=== PATIENT | female | born 1975 | race Caucasian/White ===

== ENCOUNTER 2017-12-18 07:40 | Emergency (ER) | payer OTHER ==
[~2017-12-18] VITALS: Ht 160 cm; Wt 119.8 kg
[2017-12-18 07:44] VITALS: TEMP 37.1; Ht 160 cm; Wt 119.8 kg
[2017-12-18] MEDS ORDERED: KETOROLAC TROMETHAMINE 30 MG/ML VIAL IV STA (08:07)
[2017-12-18] MEDS ORDERED: CLIN300C2 PO (08:10)
[2017-12-18] MEDS ORDERED: CLINDAMYCIN IV 900 MG in DEXTROSE 5% 100ML 100 ML IV ONE (08:15)
[2017-12-18] MEDS ORDERED: ACET-1256 PO (08:25)
[2017-12-18 08:48] LABS: BASO % 0.7 %; BASO ABS # 0.07 K/uL (0-0.2); EOS % 0.3 %; EOS ABS # 0.03 K/uL (0-0.5); HEMOGLOBIN 13.5 g/dL (12.0-16.0); IG# 0.03 K/uL (0.00-0.02); LYMPH % 14.1 %; LYMPH ABS # 1.35 K/uL (1.2-3.4); MEAN CELL VOLUME 84.4 fL (80-100); MEAN CORPUSCULAR HEMOGLOBIN 27.8 pg (25-34); MEAN CORPUSCULAR HGB CONC 32.9 g/dl (32-36); MEAN PLATELET VOLUME 9.4 fL (7.4-10.4); MONO % 6.2 %; MONO ABS # 0.59 K/uL (0.11-0.59); NEUT % 78.4 %; NEUT ABS # 7.52 K/uL (1.4-6.5); PLATELET COUNT 334 K/uL (130-400); RED CELL DISTRIBUTION WIDTH CV 13.9 % (11.5-14.5); RED CELL DISTRIBUTION WIDTH SD 42.5 fL (36.4-46.3); WHITE BLOOD COUNT 9.59 K/uL (4.8-10.8)
[2017-12-18 08:51] LABS: CALCIUM 8.6 mg/dl (8.5-10.1); CREATININE 0.73 mg/dl (0.60-1.20); POTASSIUM 3.9 mmol/L (3.5-5.1)
[2017-12-18 08:57] VITALS: BP 113/63; PULSE 67; O2SAT 97
--- NOTE | 2017-12-18 11:45 | EMERGENCY ROOM VISIT NOTE ---
History First contact with patient: 07:48 Chief Complaint: FACIAL PAIN/INJURY Stated Complaint: MAJOR FACIAL SWELLING History of Present Illness The patient is a 42 year old female who presents to the Emergency Room with complaints of right facial swelling and right upper dental pain. The patient reports that she has had a toothache for the past several days. She did notice some mild swelling last evening, and had significant swelling upon awakening this morning. She denies any sinus congestion, sore throat, throat/tongue swelling or difficulty breathing. She also denies any fevers or chills. She did take some Tylenol last night, and use Orajel with moderate relief of her discomfort. She currently rates her pain a 6 out of 10. Review of Systems HEENT: Denies dizziness, visual problems, hearing loss, tinnitus. Denies difficulty swallowing or oral lesions. PULMONARY: Denies cough, shortness of breath, sputum production or hemoptysis. CARDIOVASCULAR: Denies chest pain, palpitations, dyspnea on exertion, orthopnea or peripheral edema. GASTROINTESTINAL: Denies diarrhea, constipation, nausea, vomiting, or abdominal pain. GENITOURINARY: Denies dysuria, frequency, urgency or nocturia. NEUROLOGIC: Denies history of epilepsy, CVA, TIA or chronic headaches. MUSCULOSKELETAL: Denies history of joint tenderness/swelling. SKIN: Denies rashes or lesions. PSYCHIATRIC: Denies history of depression or mental illness. ENDOCRINE: Denies history of diabetes or thyroid disorders. Past Medical/Surgical History Medical Problems: (1) Endometriosis (2) Gout Nos (3) Tubal Ligation Status Family History FH: breast cancer Social History Smoking Status: Never Smoker Alcohol Use: occasionally Marital Status: Housing Status: lives with family Occupation Status: employed Current/Historical Medications Scheduled Clindamycin Hcl (Cleocin), 300 MG PO QID Scheduled PRN Acetaminophen (Tylenol), 1,000 MG PO for Pain Physical Exam Vital Signs Date Time Temp Pulse Resp B/P (MAP) Pulse Ox O2 Delivery O2 Flow Rate FiO2 12/18/17 08:57 67 18 113/63 97 12/18/17 07:44 37.1 93 18 126/90 97 Room Air Physical Exam CONSTITUTIONAL: Obese female, alert and oriented X 3 with positive affect. Patient does not appear in any acute distress. HEENT: Patient has notable right facial edema without overriding erythema, induration or focal fluctuance. Pupils equal, round and reactive. No conjunctival injection. OROPHARYNX: The patient has discomfort to palpation and percussion of the right upper frontal teeth #5 through 7. No obvious gingival erythema, fluctuance or pointing. No evidence for Lowell's angina or retropharyngeal abscess. NECK: Full active range of motion without discomfort. LYMPHATICS: No submandibular, submental or cervical chain adenopathy. RESPIRATORY: Clear to auscultation bilaterally with no wheezing, crackles, rhonchi or stridor. CARDIOVASCULAR: Regular rate and rhythm with no murmurs, rubs or gallops. GASTROINTESTINAL: Bowel sounds present in all quadrants. No obvious hepatosplenomegaly. MUSCULOSKELETAL: Full range of motion of all joints without discomfort. INTEGUMENTARY: No rash or other significant dermatologic conditions noted. NEUROLOGIC: Cranial nerves II-XII grossly intact. No focal neurologic deficits noted. Facial sensations are intact. Medical Decision & Procedures Laboratory Results 12/18/17 08:15 Red Blood Count 4.86, Mean Corpuscular Volume 84.4, Mean Corpuscular Hemoglobin 27.8, Mean Corpuscular Hemoglobin Concent 32.9, Mean Platelet Volume 9.4, Neutrophils (%) (Auto) 78.4, Lymphocytes (%) (Auto) 14.1, Monocytes (%) (Auto) 6.2, Eosinophils (%) (Auto) 0.3, Basophils (%) (Auto) 0.7, Neutrophils # (Auto) 7.52, Lymphocytes # (Auto) 1.35, Monocytes # (Auto) 0.59, Eosinophils # (Auto) 0.03, Basophils # (Auto) 0.07 12/18/17 08:15 Test 12/18/17 08:15 White Blood Count 9.59 K/uL (4.8-10.8) Red Blood Count 4.86 M/uL (4.2-5.4) Hemoglobin 13.5 g/dL (12.0-16.0) Hematocrit 41.0 % (37-47) Mean Corpuscular Volume 84.4 fL (80-100) Mean Corpuscular Hemoglobin 27.8 pg (25-34) Mean Corpuscular Hemoglobin Concent 32.9 g/dl (32-36) Platelet Count 334 K/uL (130-400) Mean Platelet Volume 9.4 fL (7.4-10.4) Neutrophils (%) (Auto) 78.4 % Lymphocytes (%) (Auto) 14.1 % Monocytes (%) (Auto) 6.2 % Eosinophils (%) (Auto) 0.3 % Basophils (%) (Auto) 0.7 % Neutrophils # (Auto) 7.52 K/uL (1.4-6.5) Lymphocytes # (Auto) 1.35 K/uL (1.2-3.4) Monocytes # (Auto) 0.59 K/uL (0.11-0.59) Eosinophils # (Auto) 0.03 K/uL (0-0.5) Basophils # (Auto) 0.07 K/uL (0-0.2) RDW Standard Deviation 42.5 fL (36.4-46.3) RDW Coefficient of Variation 13.9 % (11.5-14.5) Immature Granulocyte % (Auto) 0.3 % Immature Granulocyte # (Auto) 0.03 K/uL (0.00-0.02) Anion Gap 7.0 mmol/L (3-11) Est Creatinine Clear Calc Drug Dose 127.0 ml/min Estimated GFR () 118.6 Estimated GFR (Non- 102.3 BUN/Creatinine Ratio 9.3 (10-20) Calcium Level 8.6 mg/dl (8.5-10.1) The above labs were reviewed. Medications Administered Medications (Trade) Dose Ordered Sig/Kuldip Route Start Time Stop Time Status Last Admin Dose Admin Clindamycin Phosphate 900 mg/ Dextrose 106 ml @ 100 mls/hr ONE ONCE IV 12/18/17 08:15 12/18/17 09:12 DC 12/18/17 08:21 100 MLS/HR Ketorolac Tromethamine (Toradol Inj) 30 mg NOW STAT IV 12/18/17 08:07 12/18/17 08:08 DC 12/18/17 08:21 30 MG Procedure IV medications: Clindamycin 900 mg IV infusion ED Course Patient history and physical exam were performed. Nurse's notes were reviewed. Vital signs were reviewed and were normal. IV access was established, and labs were drawn. Labs were reviewed and were grossly normal. The patient was administered clindamycin 900 mg IV infusion. The patient will be discharged with a prescription for clindamycin. She was encouraged alternate ibuprofen and Tylenol as needed for pain relief. She was instructed to follow-up with her dentist for further definitive treatment. She was instructed to return to the emergency department for some progressively worsening swelling, developing fever or other concerning symptoms. The patient was happy with plan of care, and voiced understanding of all discharge instructions. Medical Decision Medication Reconcilliation Current Medication List: was personally reviewed by me Blood Pressure Screening Patient's blood pressure: Normal blood pressure Impression Primary Impression: Periapical abscess with facial involvement Departure Information Prescriptions Clindamycin Hcl (CLEOCIN) 300 Mg Cap 300 MG PO QID for 10 Days, #40 CAP Prov: Jasen Gerber PA 12/18/17 Referrals No Doctor, Assigned (PCP) Patient Instructions My [facility]
== END 2017-12-18 08:59 | disposition home or self-care (01) ==
LOC: C.EDB 07:41 → C.EDA 08:59
DX: K04.7 Periapical abscess without sinus (principal)

== ENCOUNTER 2024-02-08 07:14 | Inpatient (IN) ==
--- NOTE | 2024-02-08 07:32 | Emergency Department Note ---
Impression & Plan Ventricular tachycardia ADMIT ED Provider Note HPI: History obtained from patient. The patient is a 48-year-old female who presents the emergency department with a chief complaint of intermittent episodes of dizziness. Patient states over the past 1 to 2 weeks she has had episodes near daily that occur with positional changes where she feels severe dizziness. She states usually these episodes only last several minutes at a time. These episodes seem to resolve when she sits still. Patient states that when she changes positions or when she turns her head sharply this seems to worsen her dizziness. On arrival here to the ED the patient is hemodynamically stable, she does not have any focal deficits on arrival. Patient denies any chest pain or shortness of breath, denies any recent fever/chills. Denies any headache. ROS: - Per HPI Differential Diagnosis: Peripheral vertigo, posterior circulation stroke, brain mass/tumor, intracranial hemorrhage, acute kidney injury/dehydration, amongst other potential pathologies. *Outpatient medications and allergy history reviewed. PE: General: Alert HEENT: Normocephalic, trachea midline Eyes: Extraocular eye movement is intact, no scleral erythema Pulmonary: Clear to auscultation bilaterally, no wheezing Cardio: Regular rate and rhythm GI: Abdomen is soft to palpation : No suprapubic tenderness MSK: No evidence of trauma or malformation of the extremities, no edema Skin: No evidence of rash Neuro: Alert, no focal deficits, no ataxia on [id number] testing bilaterally Psychiatric: Cooperative INDEPENDENT INTERPRETATIONS: bus driver/monitor: (As interpreted by myself): - An order was placed for continuous cardiac monitoring - Patient was noted to be in sinus rhythm with a rate of 90 EKG: (As interpreted by myself): Rate: 96 Rhythm: Normal sinus rhythm Intervals: Within normal limits ST changes: No ST elevation Time: 0735 EKG #2 (As interpreted by myself): Rate: 130 Rhythm: Sinus rhythm with 13 beat run of ventricular tachycardia Intervals: When in sinus rhythm within normal limits ST changes: No ST elevation Time: 0753 Interventions provided in ED: -Meclizine, IV amiodarone bolus and drip, IV metoprolol, IV fluid bolus Medical Decision Making: IV was established and lab work obtained, patient was placed on nurse monitoring. Initial EKG shows sinus rhythm without any acute ischemic changes or arrhythmia. While on the nurse monitoring here in the ED the patient was noted to have multiple runs of ventricular tachycardia that were nonsustained, at times patient did have runs as long as about 15 seconds. She stated at times she did have some dizziness but denied any chest pain or shortness of breath. Patient was initiated on IV amiodarone bolus and drip. Lab work shows no leukocytosis, hemoglobin is normal, platelet count is normal, CMP does not show any evidence of any critical findings, magnesium and TSH are both within normal limits, potassium is normal. Troponin is negative. Patient symptoms initially seemed consistent with peripheral vertigo however given arrhythmia on the monitor I suspect this is likely the source of her dizziness and intermittent nausea. I discussed the patient's presentation with on-call cardiology, Dr. Jansen, they are in agreement for consultation and he recommends at this time maintaining the patient on amiodarone drip as her episodes are nonsustained with ventricular tachycardia. Case was then discussed with the on-call admitting hospitalist, Dr. Delgado, the patient was placed for admission in stable condition. Consultants/Discussions held with other healthcare providers: -Cardiology, Dr. Jansen -Hospitalist, Dr. Delgado Disposition discussion held by myself with: -Patient and at bedside * CRITICAL CARE TIME: ( 43 ) minutes -Stabilization of tachyarrhythmia/ventricular tachycardia requiring IV medications for rhythm control, time spent at the bedside, interpretation of multiple EKGs and diagnostic studies, discussion with other specialists/healthcare providers and arrangement of admission Diagnosis: 1. Ventricular tachycardia, acute, nonsustained 2. Episodic lightheadedness/dizziness, acute Disposition: Admission Thierno Denise DO Emergency Medicine Past Med/Surg History Problem List (Updated 02/08/24 @ 12:34 by Thierno Denise DO) Ventricular tachycardia (Acute) Non-sustained ventricular tachycardia Vitamin D deficiency Diarrhea Crohn's disease History of dental surgery Endometriosis Periapical abscess with facial involvement (Acute) abx treated > resolved Medical History (Updated 02/08/24 @ 12:34 by Thierno Denise DO) Gout Morbid obesity with BMI of 45.0-49.9, adult GERD (gastroesophageal reflux disease) hx of Obesity History of COVID-19 x2--03/2023 and Dec 2021 > not hospitalized Surgical History Tubal ligation status History of colonoscopy History of dilatation and curettage History of ankle surgery right Family History Other No family history of adverse response to anesthesia Social History Smoking Status: Never smoker Second Hand Exposure: No; Do You Dip or Chew Tobacco: No; Hx Alcohol Use: No Hx Substance Use: No Preferred Language: Georgian Communication Ability: Effective Lead Application Architect Required: No Beliefs That Will Affect Care: None marital status: Current Living Situation: Spouse and Family current occupational status: other current occupation: Homemaker Feels Safe at Home: Yes Assistive Devices: Denture - Upper and Glasses Allergies Allergies Allergy/AdvReac Type Severity Reaction Status Date / Time No Known Allergies Allergy Verified 02/08/24 09:33 Home Meds Home Medications Medication Instructions Recorded Confirmed cholecalciferol (vitamin D3) 10 800 unit PO QAM vitamin D 05/29/23 02/08/24 mcg (400 unit) capsule insufficiency Previous Rx's Medication Instructions Recorded mesalamine 1.2 gram tablet,delayed 2.4 g (2 x 1.2 gram) PO DAILY 01/10/24 release days #180 tabs Results & Data (ED) Vital Signs Vital Signs - 24 hr 02/08/24 07:20 02/08/24 07:54 02/08/24 08:02 Temperature 36.8 C Temperature Source Oral Pulse Rate 104 H 108 H Pulse Rate from SpO2 Sensor Respiratory Rate 20 Respiratory Effort / Characteristics Non-Labored Spontaneous Respiratory Depth Normal Respiratory Pattern Regular Blood Pressure 146/93 H 130/91 Blood Pressure Mean 110 101 Pulse Oximetry 99 Oxygen Delivery Method Room Air Sepsis Recent Fever Within 48 Hours No Sepsis New/Unexplained Change in Mental Status N/A Sepsis Action Taken by Nursing No Action Required 02/08/24 08:03 02/08/24 08:45 02/08/24 08:46 Temperature Temperature Source Pulse Rate 101 H 93 H Pulse Rate from SpO2 Sensor Respiratory Rate 22 Respiratory Effort / Characteristics Respiratory Depth Respiratory Pattern Blood Pressure 146/80 H 146/80 H Blood Pressure Mean 85 Pulse Oximetry 97 Oxygen Delivery Method Room Air Sepsis Recent Fever Within 48 Hours Sepsis New/Unexplained Change in Mental Status Sepsis Action Taken by Nursing 02/08/24 08:54 02/08/24 09:21 02/08/24 09:27 Temperature Temperature Source Pulse Rate 101 H 85 101 H Pulse Rate from SpO2 Sensor 67 65 72 Respiratory Rate 18 21 11 L Respiratory Effort / Characteristics Respiratory Depth Respiratory Pattern Blood Pressure Blood Pressure Mean Pulse Oximetry 97 97 97 Oxygen Delivery Method Room Air Room Air Room Air Sepsis Recent Fever Within 48 Hours Sepsis New/Unexplained Change in Mental Status Sepsis Action Taken by Nursing 02/08/24 09:32 02/08/24 09:34 02/08/24 09:57 Temperature Temperature Source Pulse Rate 91 H 73 Pulse Rate from SpO2 Sensor 73 Respiratory Rate 20 Respiratory Effort / Characteristics Respiratory Depth Respiratory Pattern Blood Pressure 168/91 H 168/91 H 115/88 Blood Pressure Mean 99 97 Pulse Oximetry 98 Oxygen Delivery Method Room Air Sepsis Recent Fever Within 48 Hours Sepsis New/Unexplained Change in Mental Status Sepsis Action Taken by Nursing Laboratory Data 02/08/24 07:40 02/08/24 07:40 Lab Results 02/08/24 Range/Units 07:40 WBC 5.88 (4.8-10.8) K/ul RBC 5.24 (4.20-5.40) M/uL Hgb 15.2 (12.0-16.0) g/dl Hct 44.7 (37.0-47.0) % MCV 85.3 (80.0-100.0) fL MCH 29.0 (25.0-34.0) pg MCHC 34.0 (32.0-36.0) g/dL RDW Std Deviation 38.3 (36.4-46.3) fL RDW Coeff of Dara 12.3 (11.5-14.5) % Plt Count 325 (130-400) K/uL MPV 9.3 L (9.4-12.4) fL Immature Gran % (Auto) 0.5 % Neut % (Auto) 71.7 % Lymph % (Auto) 21.1 % Sharp % (Auto) 4.6 % Eos % (Auto) 0.7 % Baso % (Auto) 1.4 % Neut # (Auto) 4.22 (1.40-6.50) K/uL Lymph # (Auto) 1.24 (1.20-3.40) K/uL Sharp # (Auto) 0.27 (0.11-0.59) K/uL Eos # (Auto) 0.04 (0.00-0.50) K/uL Baso # (Auto) 0.08 (0.00-0.20) K/uL Immature Gran # (Auto) 0.03 (0.01-0.20) K/uL Sodium 141 (136-145) mmol/L Potassium 3.9 (3.5-5.1) mmol/L Chloride 107 (98-107) mmol/L Carbon Dioxide 25 (21-32) mmol/L Anion Gap 9 (3-11) BUN 11 (6-23) mg/dl Creatinine 0.75 (0.6-1.2) mg/dl Est Cr Clr Drug Dosing 115.6 ml/min eGFR 98.76 BUN/Creatinine Ratio 14.7 (10-20) Glucose 111 H (70-99(Fasting)) mg/dl Calcium 9.9 (8.6-10.3) mg/dl Magnesium 1.9 (1.7-2.4) mg/dl Total Bilirubin 1.2 H (0.2-1.0) mg/dl AST 13 (13-39) U/L ALT 14 (7-52) U/L Alkaline Phosphatase 67 (34-104) U/L Troponin I High Sens 3.0 (0-14) pg/ml Total Protein 7.5 (6.0-8.3) gm/dl Albumin 4.5 (3.4-5.0) gm/dl Globulin 3.0 (2.5-4.0) gm/dl Albumin/Globulin Ratio 1.5 (0.9-2) TSH 3.148 (0.300-4.500) uIu/ml Administered Medications Amiodarone HCl/Dextrose (Nexterone / D5w) 360 mg in 200 mls @ 33.333 mls/hr IV ONE ONE Stop: 02/08/24 14:08 Last Admin: 02/08/24 08:14 Dose: 1 mg/min, 33.3 mls/hr Documented By: IAN Co-signed By: ARTHUR Discontinued Medications Amiodarone HCl/Dextrose (Amiodarone 360mg / 200ml D5w) Confirm Administered Dose 360 mg IV .STK-MED ONE Stop: 02/08/24 08:01 Last Admin: 02/08/24 08:02 Dose: Not Given Documented By: IAN Amiodarone HCl/Dextrose (Amiodarone 150mg / 100ml D5w) Confirm Administered Dose 150 mg IV .STK-MED ONE Stop: 02/08/24 08:01 Last Admin: 02/08/24 08:02 Dose: Not Given Documented By: IAN Amiodarone HCl (Amiodarone Iv Bolus & Drip) 1 each IV NOW STA; Protocol Stop: 02/08/24 07:59 Last Admin: 02/08/24 08:34 Dose: 1 each Documented By: IAN Sodium Chloride (Nss) 1,000 mls @ 999 mls/hr IV .Q1H1M ONE Stop: 02/08/24 08:58 Last Infusion: 02/08/24 09:44 Dose: Infused Documented By: Admin: 02/08/24 08:14 Dose: 999 mls/hr Documented By: IAN Amiodarone HCl/Dextrose (Nexterone / D5w) 150 mg in 100 mls @ 600 mls/hr IV NOW STA Stop: 02/08/24 08:07 Last Infusion: 02/08/24 08:15 Dose: Infused Documented By: IAN Co-signed By: ARTHUR Admin: 02/08/24 08:02 Dose: 600 mls/hr Documented By: IAN Co-signed By: TONI Meclizine HCl (Meclizine Hcl 25 Mg Tab) 25 mg PO NOW STA Stop: 02/08/24 07:32 Last Admin: 02/08/24 07:57 Dose: 25 mg Documented By: WILY Metoprolol Tartrate (Metoprolol Tartrate 1 Mg/Ml Vial) 5 mg IV NOW STA Stop: 02/08/24 08:42 Last Admin: 02/08/24 08:46 Dose: 5 mg Documented By: IAN Miscellaneous (Stat Iv Infusion Titration Per Protocol) 1 each N/A NOW STA Stop: 02/08/24 07:59 Last Admin: 02/08/24 08:35 Dose: Not Given Documented By: IAN Imaging Data Radiologist's Impression: Chest X-Ray 02/08/24 09:00 XR chest 1V portable HISTORY: 48 years-old Female Dysrhythmia acute chest pain COMPARISON: 07/15/2022 TECHNIQUE: AP view of the chest FINDINGS: Cardiac silhouette is enlarged. No pneumothorax, pleural effusion or airspace consolidation. Bones of the chest appear grossly intact. IMPRESSION: No acute process. ACT 112: Negative or not required by law. The above report was generated using voice recognition software. It may contain grammatical, syntax or spelling errors. Electronically signed by: Jesus Lane M.D. 02/08/2024 9:41 AM Discharge Plan Visit Data Chief Complaint: Vertigo Stated Complaint: EXTREME DIZZINESS ED Provider: Thierno Denise Discharge Problem: Ventricular tachycardia Patient Disposition: Admitted As Inpatient Discharge Instructions Interventions: ED Discharge Assessment Last Done: 02/08/24 11:57
[2024-02-08] MEDS: MECLIZINE HCL 25 MG TAB PO STA (07:57)
[2024-02-08] MEDS ORDERED: 0.2 MICRON FILTER SET 1 EACH IV STA (07:58)
[2024-02-08] MEDS: AMIODARONE 150MG / 100ML D5W IV ONE (08:02)
[2024-02-08] MEDS: AMIODARONE 360MG / 200ML D5W IV ONE (08:02)
[2024-02-08] MEDS: AMIODARONE / D5W 150 MG/100 ML BAG IV STA (08:02)
[2024-02-08 08:09] LABS: Basophils # (auto) 0.08 K/uL (0.00-0.20); Basophils % (auto) 1.4 %; Eosinophils # (auto) 0.04 K/uL (0.00-0.50); Eosinophils % (auto) 0.7 %; Hematocrit (blood only) 44.7 % (37.0-47.0); Hemoglobin 15.2 g/dl (12.0-16.0); Immature Granulocytes # (auto) 0.03 K/uL (0.01-0.20); Immature Granulocytes % (auto) 0.5 %; Lymphocytes # (auto) 1.24 K/uL (1.20-3.40); Lymphocytes % (auto) 21.1 %; Mean Corpuscular Volume 85.3 fL (80.0-100.0); Mean Platelet Volume 9.3 fL (9.4-12.4); Monocytes # (auto) 0.27 K/uL (0.11-0.59); Monocytes % (auto) 4.6 %; Neutrophils # (auto) 4.22 K/uL (1.40-6.50); Neutrophils % (auto) 71.7 %; Platelet Count 325 K/uL (130-400); RDW Coefficient of Variation 12.3 % (11.5-14.5); RDW Standard Deviation 38.3 fL (36.4-46.3); Red Blood Count 5.24 M/uL (4.20-5.40); White Blood Count 5.88 K/ul (4.8-10.8)
[2024-02-08] MEDS: SODIUM CHLORIDE 0.9% 1,000 ML IV ONE (08:14)
[2024-02-08] MEDS: AMIODARONE / D5W 360 MG/200 ML BAG IV ONE (08:14)
[2024-02-08 08:19] LABS: Albumin Globulin Ratio 1.5 (0.9-2); Albumin Level 4.5 gm/dl (3.4-5.0); BUN Creatinine Ratio 14.7 (10-20); Bilirubin,Total 1.2 mg/dl (0.2-1.0); Calcium 9.9 mg/dl (8.6-10.3); Creatinine Clr Calc Pharmacy 115.6 ml/min; Potassium 3.9 mmol/L (3.5-5.1); Total Protein 7.5 gm/dl (6.0-8.3)
[2024-02-08] MEDS: AMIODARONE IV BOLUS & DRIP IV STA (08:34)
[2024-02-08] MEDS: STAT IV Infusion **Titration per Protocol STA (08:35)
[2024-02-08] MEDS: METOPROLOL TARTRATE 1 MG/ML VIAL IV STA (08:46)
[2024-02-08 08:56] LABS: Magnesium 1.9 mg/dl (1.7-2.4)
[2024-02-08 09:12] LABS: Thyroid Stimulating Hormone 3.148 uIu/ml (0.300-4.500)
--- NOTE | 2024-02-08 09:42 | XRay Report ---
XR chest 1V portable HISTORY: 48 years-old Female Dysrhythmia acute chest pain COMPARISON: 07/15/2022 TECHNIQUE: AP view of the chest FINDINGS: Cardiac silhouette is enlarged. No pneumothorax, pleural effusion or airspace consolidation. Bones of the chest appear grossly intact. IMPRESSION: No acute process. ACT 112: Negative or not required by law. The above report was generated using voice recognition software. It may contain grammatical, syntax o r spelling errors. Electronically signed by: Jesus Laen M.D. 02/08/2024 9:41 AM
--- NOTE | 2024-02-08 10:06 | History & Physical Report ---
Date of Service February 08, 2024 Assessment & Plan (1) Non-sustained ventricular tachycardia: Plan: Suspect cause of her presenting complaint of dizziness Amiodarone IV bolus and drip TTE HS Troponin I normal on admission and symptoms ongoing for 2 days therefore no n eed to repeat Consult cardiology for ongoing management - ultimately will need EP study Plan Crohn's disease - continue mesalamine VTE Prophylaxis - low risk Diet - NPO pending echocardiogram Disposition - admit to PCU Admission and Anticipated Discharge Date Admission Date: February 07, 2024 History of Present Illness Chief Complaint: Lightheadedness Primary Care Provider: Alfonso Paniagua Brynn Mondragon is a 48 year old female who presents to the ER with dizziness. She reports 2 days of of lightheadedness, feeling like she is going to pass out without any syncopal episodes. Come on intermittently lasting for seconds/minutes. No forewarning. No chest pain or shortness of breath. No worsening or improvement with exertion. Allergies Allergy/AdvReac Type Severity Reaction Status Date / Time No Known Allergies Allergy Verified 02/08/24 09:33 Home Medications Medication Instructions Recorded Confirmed Type cholecalciferol (vitamin D3) 10 800 unit PO QAM vitamin D 05/29/23 02/08/24 History mcg (400 unit) capsule insufficiency mesalamine 1.2 gram tablet,delayed 2.4 g (2 x 1.2 gram) PO DAILY 90 01/10/24 02/08/24 Rx release days #180 tabs Past Med/Surg History Problem List (Updated 02/08/24 @ 12:34 by Thierno Denise DO) Ventricular tachycardia (Acute) Non-sustained ventricular tachycardia Vitamin D deficiency Diarrhea Crohn's disease History of dental surgery Endometriosis Periapical abscess with facial involvement (Acute) abx treated > resolved Medical History (Updated 02/08/24 @ 12:34 by Thierno Denise DO) Gout Morbid obesity with BMI of 45.0-49.9, adult GERD (gastroesophageal reflux disease) hx of Obesity History of COVID-19 x2--03/2023 and Dec 2021 > not hospitalized Surgical History Tubal ligation status History of colonoscopy History of dilatation and curettage History of ankle surgery right Family History Other No family history of adverse response to anesthesia Social History Smoking Status: Never smoker Second Hand Exposure: No; Do You Dip or Chew Tobacco: No; Hx Alcohol Use: No Hx Substance Use: No Preferred Language: Macedonian Communication Ability: Effective Bevel Mill Operator Required: No Beliefs That Will Affect Care: None marital status: Current Living Situation: Spouse current occupational status: other current occupation: Homemaker Other Information That Helps Us Care for You: No Feels Safe at Home: Yes Safety Concerns: Feels Safe At This Time Assistive Devices: Denture - Upper and Glasses Review of Systems Review of Systems: All systems reviewed & are unremarkable except as noted in HPI & below Physical Exam Constitutional: WD/WN, vitals as above Respiratory: normal respiratory effort, lungs clear to auscultation Cardiovascular: RRR, no murmur, no edema Gastrointestinal (Abdomen): normal bowel sounds, soft, nontender, no hepatosplenomegaly Skin: no rashes, warm and dry Results & Data Results & Data Vital Signs (Past 12 Hours) Vital Signs Temp Pulse Resp BP Pulse Ox O2 Del Method 02/08/24 09:57 73 20 115/88 98 Room Air 02/08/24 09:34 168/91 H 02/08/24 09:32 91 H 168/91 H 02/08/24 09:27 101 H 11 L 97 Room Air 02/08/24 09:21 85 21 97 Room Air 02/08/24 08:54 101 H 18 97 Room Air 02/08/24 08:46 93 H 146/80 H 02/08/24 08:45 146/80 H 02/08/24 08:03 101 H 22 97 Room Air 02/08/24 08:02 130/91 02/08/24 07:54 108 H 02/08/24 07:20 36.8 C 104 H 20 146/93 H 99 Room Air Laboratory Results Abnormal lab results 02/08/24 Range/Units 07:40 MPV 9.3 L (9.4-12.4) fL Glucose 111 H (70-99(Fasting)) mg/dl Total Bilirubin 1.2 H (0.2-1.0) mg/dl Medications Administered ER Medications Given: Meclizine 25mg PO NSS 1L bolus Amiodarone bolus and drip Code Status & VTE Plan Code Status Full VTE Prophylaxis Plan VTE Prophylaxis will be ordered: Yes PG Care Time/CCT Total # of Minutes Spent Total Time Spent with Patient: Total time spent is greater than 50% in coordination of care (as documented) at patient's floor/unit and/or counseling patient: Coding Level of Care Code 20380 INT INP/OBS CARE 3/75MIN Diagnoses Non-sustained ventricular tachycardia I47.29
--- NOTE | 2024-02-08 10:35 | Electrocardiogram Report ---
Test Reason : Blood Pressure : */* mmHG Vent. Rate : 96 BPM Atrial Rate : 96 BPM P-R Int : 146 ms QRS Dur : 78 ms QT Int : 358 ms P-R-T Axes : 43 10 28 degrees QTcB Int : 452 ms Normal sinus rhythm Normal ECG When compared with ECG of 15-Jul-2022 11:58, Premature ventricular complexes are no longer Present Confirmed by Edgardo Jansen ([id number]) on 02/08/2024 10:34:33 AM Referred By: REFERRED SELF Confirmed By: Edgardo Jansen
--- NOTE | 2024-02-08 11:55 | Cardiology Consultation ---
Date of Consultation February 08, 2024 Assessment & Plan (1) Non-sustained ventricular tachycardia: 48-year-old woman with Crohn's disease morbid obesity, no cardiac history, presents with episodic dizziness over the past 1 to 2 weeks and found to have recurrent episodes of nonsustained monomorphic ventricular tachycardia. Etiology is uncertain, no obvious metabolic stressors and lab parameters are unremarkable (potassium, magnesium, TSH, hemoglobin, troponin). Preliminary review of echocardiogram does not suggest cardiomyopathy but does demonstrate marked reduction in left ventricular systolic function during episodes of ventricular tachycardia. Frequency of ventricular dysrhythmia is diminishing on IV amiodarone and after 1 dose of metoprolol tartrate 5 mg IV. Case discussed with Dr. 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 This will allow for a more benign medication for control in this relatively young patient, also it would avoid overly suppressing the ventricular tachycardia by using amiodarone, which could complicate attempts to reproduce the dysrhythmia if VT ablation is pursued. Recommend metoprolol tartrate 50 mg p.o. now followed by metoprolol titrate 25 mg PO every 6 hours (with hold orders for hypotension or bradycardia). When she demonstrates a normal rhythm with no further ventricular tachycardia f or 4-6 hours, would wean amiodarone off, restarting if necessary for recurrent dysrhythmia. Case discussed with Dr. Delgado. At the time of this dictation, patient was hemodynamically stable and largely asymptomatic (mild dizziness during recurrent VT only). History of Present Illness Reason for Consultation: V. tach Requesting Physician: Rei Delgado MD Attending Physician: Rei Delgado MD History of Present Illness 48-year-old woman with morbid obesity and Crohn's disease, no prior cardiac history, who presents to ER after 1 to 2 weeks of dizziness and noted to have recurrent nonsustained monomorphic ventricular tachycardia. At recent baseline, she denies any chest pain, dyspnea exertion, or subjective palpitations. About 10 days ago she noted significant lightheadedness and dizziness intermittently throughout the day, the symptoms resolved without intervention but began recurring again over the past 24 hours. No chest pain, dyspnea, or palpitations associated with the lightheadedness. Upon ER presentation, frequent episodes of borderline sustained monomorphic ventricular tachycardia noted on monitor and twelve-lead ECG. IV amiodarone administered along with IV metoprolol with reduction in frequency of dysrhythmia occurrence but not total suppression. No major recent changes in lifestyle. She denies any diarrhea, fevers, or her other indications of metabolic stress. She does note substantial emotional stress, both of her parents within the past year and she becomes emotional when remembering them. She had no somatic complaints at rest while in sinus rhythm, she does note dizziness with some episodes of ventricular tachycardia. Blood pressure has been normotensive throughout. Allergies Allergy/AdvReac Type Severity Reaction Status Date / Time No Known Allergies Allergy Verified 02/08/24 09:33 Home Medications Medication Instructions Recorded Confirmed Type cholecalciferol (vitamin D3) 10 800 unit PO QAM vitamin D 05/29/23 02/08/24 History mcg (400 unit) capsule insufficiency mesalamine 1.2 gram tablet,delayed 2.4 g (2 x 1.2 gram) PO DAILY 90 01/10/24 02/08/24 Rx release days #180 tabs Patient History Medical History (Updated 02/08/24 @ 12:17 by Edgardo Jansen MD) Gout Morbid obesity with BMI of 45.0-49.9, adult GERD (gastroesophageal reflux disease) hx of Obesity History of COVID-19 x2--03/2023 and Dec 2021 > not hospitalized Surgical History Tubal ligation status History of colonoscopy History of dilatation and curettage History of ankle surgery right Family History Other No family history of adverse response to anesthesia Social History Smoking Status: Never smoker Second Hand Exposure: No; Do You Dip or Chew Tobacco: No; Hx Alcohol Use: No Hx Substance Use: No Preferred Language: Spanish Communication Ability: Effective Senior Audit Manager Required: No Beliefs That Will Affect Care: None marital status: Current Living Situation: Spouse and Family current occupational status: other current occupation: Homemaker Feels Safe at Home: Yes Assistive Devices: Denture - Upper and Glasses Physical Exam Physical Exam: Adult white female who appears anxious but is not acutely distressed. BMI 49.3. Afebrile. BP 120/79 mmHg. Pulse 72 bpm and regular with intermittent tachycardia. Respirations 20 but unlabored. Skin: no ecchymoses or generalized lesions. HEENT: unremarkable. Neck: JVP at the clavicle at 90 degrees, no carotid bruits. Lungs: clear. Cardiac: regular rhythm, normal S1-2, no murmur. Abdomen: benign. Extremities: no edema, pulses intact. Neurologic: normal affect and conversation, nonfocal. Results & Data Laboratory Results Normal CBC. Normal electrolytes with potassium 3.9, magnesium 1.9. BUN 11, creatinine 0.75. Glucose 111. TSH normal. Troponin 3.0. Diagnostic Findings Chest x-ray showed mild cardiomegaly but was otherwise unremarkable. Initial ECG showed sinus rhythm at 96 bpm and was unremarkable. Second ECG showed sinus rhythm with a 13 beat run of monomorphic ventricular tachycardia mid tracing. 30 ECG showed sinus rhythm with multiple episodes of ventricular tachycardia (48 beat runs). Preliminary review of echocardiogram (being performed at the time of my evaluation) showed normal LV size and low normal systolic function, of note left ventricular systolic function was noted to dramatically but transiently drop during episodes of ventricular tachycardia. No significant valvular disease. PG Care Time/CCT Total # of Minutes Spent Total Time Spent with Patient: Total time spent is greater than 50% in coordination of care (as documented) at patient's floor/unit and/or counseling patient: Coding Level of Care Code 05581 IN/OBS CONSULT LVL 5,80M Diagnoses Non-sustained ventricular tachycardia I47.29
[2024-02-08] MEDS: AMIODARONE / D5W 360 MG/200 ML BAG IV SCH (13:36)
--- NOTE | 2024-02-08 14:07 | XCELERA ---
[id number]
[2024-02-08] MEDS: METOPROLOL TARTRATE 50 MG TAB PO STA (14:36)
[2024-02-08] MEDS: METOPROLOL TARTRATE 25 MG TAB PO SCH (18:42)
--- NOTE | 2024-02-09 07:08 | Hospitalist Progress Note ---
Date of Service February 09, 2024 Assessment & Plan (1) Non-sustained ventricular tachycardia: Plan Ventricular Tachycardia Pt is denying current dizziness at rest or with short ambulation. She is bradycardic on amiodarone drip, but asymptomatic. - TTE- EF 55-60%, No valvular diseased noted. L and R ventricle size and function are normal. - HS Troponin I normal on admission, no further assessment necessary due to length of symptoms prior to adm - Continue Amiodarone IV bolus and drip - Continue Metoprolol 25mg PO q6h - Pending further cardiology recs Crohn's disease - - Continue mesalamine VTE Prophylaxis - low risk Diet - regular Disposition - admit to PCU Admission and Anticipated Discharge Date Admission Date: February 08, 2024 Subjective Pt is a 48 yo female who was admitted for symptomatic SVT. She was placed on amiodarone drip. This morning, reports feeling well. No palpitations, dizziness or nausea over night. Pt is walking herself to/from bathroom without SOB or fatigue. Review of Systems Review of Systems: As per HPI Physical Exam Physical Exam: Adult white female who resting comfortably in bed and is not acutely distressed. BMI 49.3. Afebrile. Skin: no ecchymoses or generalized lesions. HEENT: unremarkable. Neck: JVP at the clavicle at 90 degrees, no carotid bruits. Lungs: CTA, nonlabored breathing, equal chest rise Cardiac: regular rhythm, normal S1-2, no murmur. Abdomen: Non tender, no distended. Normal bowel sounds throughout Extremities: no extremity edema, pulses intact. Neurologic: A & O x 4, normal affect and conversation, nonfocal. Results & Data Results & Data Vital Signs (Past 12 Hours) Vital Signs Temp Pulse Pulse Resp BP BP Pulse Ox 02/09/24 05:50 50 L 02/09/24 03:20 36.5 C 54 L 18 105/69 97 02/08/24 23:30 36.9 C 56 L 20 124/79 98 02/08/24 23:00 56 L 02/08/24 20:00 36.9 C 54 L 98 O2 Del Method 02/09/24 05:50 02/09/24 03:20 Room Air 02/08/24 23:30 Room Air 02/08/24 23:00 02/08/24 20:00 Room Air
[2024-02-09 10:40] VITALS: TEMP 97.9
--- NOTE | 2024-02-09 13:25 | Cardiology Progress Note ---
Date of Service February 09, 2024 Assessment & Plan (1) Non-sustained ventricular tachycardia: Plan ASSESSMENT/PLAN: 1. Nonsustained ventricular tachycardia: Quite symptomatic. Possibly right ventricular outflow tract tachycardia. We discussed the diagnosis. Electrophysiology had given recommendations to Dr. Jansen yesterday on initial consultation. Agree with discontinuation of amiodarone. Spoke with nursing staff to discontinue the amiodarone this morning. Administer dose of metoprolol. If heart rate 60 or above this afternoon, can discharge home on metoprolol tartrate 50 mg twice daily, otherwise 25 mg twice daily. Recommend close follow-up with electrophysiology in the outpatient setting to make further adjustments or consider ablation if deemed appropriate at that time. If she should have significant symptoms in the outpatient setting, she can be present to the hospital. 2. Disposition: Follow-up with electrophysiology in the outpatient setting. Patient care communicated with Dr. Mtz, of the primary hospitalist service. Admission and Anticipated Discharge Date Admission Date: February 08, 2024 Subjective Patient seen this morning with at the bedside. She has not noted any further palpitations. She has been maintained on amiodarone drip overnight. She received a total of 75 mg of metoprolol tartrate yesterday but 2 doses of 25 mg each were held due to bradycardia since then. She denies chest pain, shortness of breath, syncope, near syncope, edema, or bleeding. She feels much better. Physical Exam Physical Exam: Gen.: No acute distress. Alert and oriented. HEENT: Anicteric sclera. Neck: No JVD. Cardiac: Regular. Normal S1-S2. No murmurs, rubs, or gallops. Pulmonary: Clear to auscultation bilaterally without wheezes, rales, or rhonchi. Abdomen: Soft, nontender, nondistended, with normoactive bowel sounds. No bruits noted. Extremities: 2+ radial pulses bilaterally. 2+ posterior tibialis pulses bilaterally. No edema or cyanosis. Psychiatric: Affect appears appropriate. Results & Data Vital Signs (Past 12 Hours) Vital Signs Temp Pulse Pulse Resp BP Pulse Ox O2 Del Method 02/09/24 10:39 36.6 C 56 L 18 125/82 97 Room Air 02/09/24 07:29 36.5 C 58 L 20 126/77 97 Room Air 02/09/24 07:17 49 L 02/09/24 05:50 50 L 02/09/24 03:20 36.5 C 54 L 18 105/69 97 Room Air Laboratory Results Laboratory Results - last 48 hr 02/08/24 07:40 WBC 5.88 RBC 5.24 Hgb 15.2 Hct 44.7 MCV 85.3 MCH 29.0 MCHC 34.0 RDW Std Deviation 38.3 RDW Coeff of Dara 12.3 Plt Count 325 MPV 9.3 L Immature Gran % (Auto) 0.5 Neut % (Auto) 71.7 Lymph % (Auto) 21.1 [place] % (Auto) 4.6 Eos % (Auto) 0.7 Baso % (Auto) 1.4 Neut # (Auto) 4.22 Lymph # (Auto) 1.24 [place] # (Auto) 0.27 Eos # (Auto) 0.04 Baso # (Auto) 0.08 Immature Gran # (Auto) 0.03 Sodium 141 Potassium 3.9 Chloride 107 Carbon Dioxide 25 Anion Gap 9 BUN 11 Creatinine 0.75 Est Cr Clr Drug Dosing 115.6 eGFR 98.76 BUN/Creatinine Ratio 14.7 Glucose 111 H Calcium 9.9 Magnesium 1.9 Total Bilirubin 1.2 H AST 13 ALT 14 Alkaline Phosphatase 67 Troponin I High Sens 3.0 Total Protein 7.5 Albumin 4.5 Globulin 3.0 Albumin/Globulin Ratio 1.5 TSH 3.148 Diagnostic Findings Telemetry personally reviewed: Sinus bradycardia and normal sinus rhythm in the 50s to 60s. Last ventricular tachycardia was a triplet on 02/08/2024 at 2146. Echo port 02/08/2024 reviewed: Normal LV systolic function. EF 55 to 60%. No significant valvular abnormalities. ECG personally reviewed 02/08/2024 at 8 AM: Sinus rhythm with episodes of wide- complex tachycardia/ventricular tachycardia with left bundle branch block morphology. Labs reviewed from 02/08/2024 notable for normal renal function, normal blood counts, normal magnesium, normal potassium, normal TSH. Medications Administered Current Inpatient Medications Metoprolol Tartrate (Metoprolol Tartrate 25 Mg Tab) 25 mg PO Q6H ROSA Stop: 03/09/24 17:59 Last Admin: 02/09/24 11:06 Dose: 25 mg PG Care Time/CCT Total # of Minutes Spent Total Time Spent with Patient: Total time spent is greater than 50% in coordination of care (as documented) at patient's floor/unit and/or counseling patient: Coding Level of Care Code 05283 SUB INP/OBS CARE 50MIN Diagnoses Non-sustained ventricular tachycardia I47.29
[2024-02-09 14:43] VITALS: PULSE 61; RESP 16; O2SAT 96
--- NOTE | 2024-02-09 16:00 | Discharge Summary ---
Date of Service February 09, 2024 Admission HPI Per Admitting Provider Brynn Mondragon is a 48 year old female who presents to the ER with dizziness. She reports 2 days of of lightheadedness, feeling like she is going to pass out without any syncopal episodes. Come on intermittently lasting for seconds/minutes. No forewarning. No chest pain or shortness of breath. No worsening or improvement with exertion. Principal Diagnosis non-sustained ventricular tachycardia Discharge Exam Adult white female who resting comfortably in bed and is not acutely distressed. BMI 49.3. Afebrile. Skin: no ecchymoses or generalized lesions. HEENT: unremarkable. Neck: JVP at the clavicle at 90 degrees, no carotid bruits. Lungs: CTA, nonlabored breathing, equal chest rise Cardiac: regular rhythm, normal S1-2, no murmur. Abdomen: Non tender, no distended. Normal bowel sounds throughout Extremities: no extremity edema, pulses intact. Neurologic: A & O x 4, normal affect and conversation, nonfocal. Discharge Data Allergies Allergy/AdvReac Type Severity Reaction Status Date / Time No Known Allergies Allergy Verified 02/08/24 09:33 Consultations 02/08/24 08:30 Consult Cardiology Routine 02/08/24 09:30 ED Decision to Admit Stat Hospital Course (1) Non-sustained ventricular tachycardia: Plan Non Sustained Ventricular Tachycardia Asymptomatic. Echo - normal. Troponin normal. Cardio consulted. Possibly right ventricular outflow tract tachycardia. Kept on amiodarone drip. HR stayed in 60s. d/michel amiodarone for concern of it affecting the EP study. Home on metoprolol 50mgs BID Outpatient f/u with Electrophysiology Total Time Total Time Spent Total Time Spent (In Minutes): As per attending physician's attestation Discharge Plan Discharge Items Patient Disposition: Home - Self-Care Reason For Visit: NON-SUSTAINED VT Discharge Diagnosis: Non-sustained ventricular tachycardia Activity: Resume your previous activity Non-emergency contact: Primary Care Provider Call non-emergency contact if: your symptoms worsen Follow-up/Referrals: Alfonso Paniagua [Primary Care Provider] - Diet: Regular Addtl Attending Provider Instructions: You were admitted to the hospital for: Non- sustained ventricular tachycardia. You were treated with antiarrhythmic medications via IV and by mouth to reduce your heart rate. The baker pastry feels you are currently stable on the prescribed medications, but would like you to have more testing done to assess for arrhythmia. A discharge summary will be sent to your primary care physician to ensure continuity of care. Please bring this discharge summary with you to your next office appointment so that your provider can review it at that time. Medications: Your medication list has been reviewed and reconciled upon discharge to ensure accuracy and continuity of care. An updated list of all your medications is included with your hospital discharge paperwork. Please review this list closely and make note of any changes to your medications. New prescription for Metoprolol 50 mg taken 2 times daily has been sent to your pharmacy Follow up appointments: - Make a follow up with an Coin Rolling Machine Operator /Utility Sales Representative at [facility] at - Make a follow up appointment with your PCP within the next week. It is very important that you follow up with them shortly after discharge from the hospital. - Keep all of your follow up appointments as already scheduled. If you cannot make an appointment, notify your provider. CONTACT YOUR PRIMARY CARE PROVIDER if you experience any of the following: - Difficulty following your treatment plan - Difficulty taking any of your medications CALL 911 OR GO TO THE EMERGENCY DEPARTMENT if you experience any of the following: - Sudden, severe abdominal pain or nausea/vomiting - Severe chest pain or chest pain that radiates to your jaw or arm - Sudden, severe shortness of breath or difficulty breathing Pending Studies at Discharge: No Stand-Alone Forms: My [facility], Smoking Cessation Medications and DC Order Prescriptions: New metoprolol tartrate 50 mg tablet 50 mg PO BID Qty: 60 0RF Continued mesalamine 1.2 gram tablet,delayed release (DR/EC) 2.4 g PO DAILY 90 Days Qty: 180 3RF cholecalciferol (vitamin D3) 10 mcg (400 unit) capsule 800 unit PO QAM Discharge Orders: Discharge Order (Routine); Ordered 02/09/24 Ordered By: Aisha Unger Admission Data Admit Date/Time: 02/08/24 10:00 Attending Provider: Janki Mtz Admit Provider: Rei Delgado Primary Care Provider: Alfonso Paniagua Other Providers: Edgardo Jansen; Rei Delgado Supervising Physician Co-Signing Physician Notes Attending Physician Supervision Note: I independently interviewed and examined the patient and verified the lopez history and physical, reviewed labs and image studies and agree with findings and care plan noted above. Resident Activity Tracking Resident Involvement: Resident Care Provided Care Provided: Adult [facility]
[2024-02-09 16:35] VITALS: BP 124/79
== END 2024-02-09 17:19 | disposition home or self-care (01) | DRG 309 ==
LOC: ED 07:14 → SUATTDRO 10:00 → EDINP 10:00 → 2S 12:41